=== PATIENT | female | born 1960 | race Two or more races ===

== ENCOUNTER → 2024-04-19 | Outpatient (CLI) | payer SELFPAY ==
--- OUTSIDE RECORDS SUMMARY | 2024-04-19 08:25 | XMS RPT_ITS | CCD ---
Author Organization [facility] In[facility]unc health Partnership [facility] Care Team Providers Care Performance Improvement Manager Name Role Phone ERIKA LUEVANO DO Primary Care Physician ([phone]) PHYSICIAN, PATIENT UNSURE Primary Care Physician Unavailable PHYSICIAN, PATIENT UNSURE Primary Care Mauricio FRIEND MD, CLEMENTINE Mauricio Attending Unavailable PHYSICIAN, PATIENT UNSURE Primary Care CLEMENTINE Cuadra MD Attending Unavailable Medications Current Medications Medication Drug Class(es) Dates Sig (Normalized) Sig (Original) amoxicillin 875 mg / clavulanate 125 mg oral tablet (1 source) Penicillin-class Antibacterial Start: 10-12-2022 End: 10-22-2022 take 1 tablet by mouth every twelve hours amoxicillin-clavul anate 875 mg-125 mg oral tablet 1 tab(s), Oral, q12h, X 10 day(s), # 20 tab(s), 0 Refill(s), 10/22/22 22:40:00 EDT, 76.4 Start Date: 10/12/22 Stop Date: 10/22/22 Status: Ordered aspirin 81 mg delayed release oral tablet (1 source) Platelet Aggregation Inhibitor, Nonsteroidal Anti-inflammatory Drug Start: 04-19-2020 aspirin 81 mg oral delayed release tablet Dose : 81 mg = 1 tab(s), Oral, qDay, # 90 tab(s), 3 Refill(s), Pharmacy: [facility]/pharmacy #[id number], 152.4, cm, 10/24/19 15:11:00 EDT, Height, kg, 10/24/19 15:11:00 EDT, Dosing Weight Start Date: 04/19/20 Status: Ordered Blood Glucose Test Machine (4 sources) Start: 09-18-2020 Blood Glucose Test Machine See Instructions, Dispense 1 glucometer, UAD daily to test blood sugar, # 1 EA, 0 Refill(s), Pharmacy: [facility]/pharmacy #[id number], Diabetes, 152, cm, 09/18/20 16:28:00 EDT, Height, 70.8, kg, 09/18/20 16:28:00 EDT, Dosing Weight Start Date: 09/18/20 Status: Ordered escitalopram 10 mg oral tablet (1 source) Serotonin Reuptake Inhibitor Start: 03-02-2022 escitalopram 10 mg oral tablet Dose : 10 mg = 1 tab(s), Oral, qDay, # 90 tab(s), 3 Refill(s), Pharmacy: [facility] #[id number], Depression with anxiety, 150.5, cm, 01/20/22 15:34:00 EDT, Height, kg, 01/20/22 15:34:00 EDT, Dosing Weight Start Date: 03/02/22 Status: Ordered ezetimibe 10 mg oral tablet (3 sources) Dietary Cholesterol Absorption Inhibitor Start: 01-20-2022 ezetimibe 10 mg oral tablet Dose : 10 mg = 1 tab(s), Oral, Daily, # 90 tab(s), 3 Refill(s), Pharmacy: [facility]/pharmacy #[id number], Mixed hyperlipidemia, 150.5, cm, 01/20/22 15:34:00 EDT, Height Start Date: 01/20/22 Status: Ordered fluticasone / salmeterol (1 source) Corticosteroid, beta2-Adrenergic Agonist Start: 09-24-2022 take 1 dose by mouth twice daily fluticasone-salmet michelle 250 mcg-50 mcg inhalation powder Dose = 1 puff(s), Inhalation, BID, rinse mouth and throat after use, # 1 EA, 0 Refill(s), Pharmacy: [facility] #[id number], Acute bronchitis, 152.5, cm, 09/24/22 11:02:00 EDT, Height Start Date: 09/24/22 Status: Ordered inulin 1500 mg chewable tablet (4 sources) Start: 05-13-2019 Fiber Choice 1.5 g oral tablet, chewable Dose : 1.5 gram(s) = 1 tab(s), Chewed, Daily, # 90 tab(s), 0 Refill(s) Start Date: 05/13/19 Status: Ordered losartan potassium 25 mg oral tablet (4 sources) Angiotensin 2 Receptor Sergio Start: 01-02-2023 losartan 25 mg oral tablet Dose : 25 mg = 1 tab(s), Oral, qDay, # 90 tab(s), 1 Refill(s), Pharmacy: [facility] #[id number], Hypertension Diabetes, 151.13, cm, 10/30/22 15:36:00 EDT, Height, kg, 10/30/22 15:36:00 EDT, Dosing Weight Start Date: 01/02/23 Status: Ordered Start: 12-11-2021 losartan 25 mg oral tablet Dose : 25 mg = 1 tab(s), Oral, qDay, # 90 tab(s), 3 Refill(s), Pharmacy: [facility]/pharmacy #[id number], Hypertension Diabetes, 154, cm, 07/02/21 14:30:00 EST, Height, kg, 07/02/21 14:30:00 EST, Dosing Weight Start Date: 12/11/21 Status: Ordered metoprolol tartrate 100 mg oral tablet (4 sources) beta-Adrenergic Sergio Start: 01-02-2023 metopr olol tartrate 100 mg oral tablet Dose : 100 mg = 1 tab(s), Oral, BID, # 180 tab(s), 1 Refill(s), Pharmacy: [facility] #[id number], 151.13, cm, 10/30/22 15:36:00 EDT, Height, kg, 10/30/22 15:36:00 EDT, Dosing Weight Start Date: 01/02/23 Status: Ordered Start: 12-11-2021 metoprolol tar trate 100 mg oral tablet Dose : 100 mg = 1 tab(s), Oral, BID, # 180 tab(s), 3 Refill(s), Pharmacy: [facility]/pharmacy #[id number], 154, cm, 07/02/21 14:30:00 EST, Height, kg, 07/02/21 14:30:00 EST, Dosing Weight Start Date: 12/11/21 Status: Ordered nitroglycerin 0.4 mg sublingual tablet (4 sources) Nitrate Vasodilator Start: 05-13-2019 nitroglyce rin 0.4 mg sublingual tablet 0.4 mg Dose = 1 tab(s), Sublingual, q5min, PRN as needed for chest pain, # 100 tab(s), 0 Refill(s) Start Date: 05/13/19 Status: Ordered ondansetron 4 mg disintegrating oral tablet (1 source) Serotonin-3 Receptor Antagonist Start: 10-12-2022 End: 10-15-2022 ondansetron 4 mg oral tablet, disintegrating Dose : 4 mg = 1 tab(s), Oral, TID, X 3 day(s), # 10 tab(s), 0 Refill(s), 10/15/22 22:40:00 EDT Start Date: 10/12/22 Stop Date: 10/15/22 Status: Ordered rosuvastatin calcium 20 mg oral tablet (4 sources) HMG-CoA Reductase Inhibitor Start: 01-02-2023 rosuvastatin 20 mg oral tablet Dose : 20 mg = 1 tab(s), Oral, qDay, # 90 tab(s), 1 Refill(s), Pharmacy: [facility] #[id number], 151.13, cm, 10/30/22 15:36:00 EDT, Height, kg, 10/30/22 15:36:00 EDT, Dosing Weight Start Date: 01/02/23 Status: Ordered Start: 07-22-2022 rosuvastatin 2 0 mg oral tablet Dose : 20 mg = 1 tab(s), Oral, qDay, # 90 tab(s), 1 Refill(s), Pharmacy: [facility] #[id number], 153, cm, 07/22/22 16:49:00 EST, Height, kg, 07/22/22 16:49:00 EST, Dosing Weight Start Date: 07/22/22 Status: Ordered Start: 07-02-2021 rosuvastatin 2 0 mg oral tablet Dose : 20 mg = 1 tab(s), Oral, qDay, # 90 tab(s), 3 Refill(s), Pharmacy: [facility]/pharmacy #[id number], 154, cm, 07/02/21 14:30:00 EST, Height, kg, 07/02/21 14:30:00 EST, Dosing Weight Start Date: 07/02/21 Status: Ordered Completed/Discontinued Medications Medication Drug Class(es) Dates Sig (Normalized) Sig (Original) metFORMIN hydrochloride 500 mg oral tablet (4 sources) Biguanide Start: 01-02-2023 End: 07-01-2023 metFORMIN 500 mg oral tablet (IR) Dose : 500 mg = 1 tab(s), Oral, BID, # 180 tab(s), 1 Refill(s), Pharmacy: [facility] #[id number], 151.13, cm, 10/30/22 15:36:00 EDT, Height, kg, 10/30/22 15:36:00 EDT, Dosing Weight Start Date: 01/02/23 Stop Date: 07/01/23 Status: Ordered Start: 12-12-2021 End: 12-07-2022 metFORMIN 500 mg oral tablet (IR) Dose : 500 mg = 1 tab(s), Oral, BID, # 180 tab(s), 3 Refill(s), [id number], 154, cm, 07/02/21 14:30:00 EST, Height, kg, 07/02/21 14:30:00 EST, Dosing Weight Start Date: 12/12/21 Stop Date: 12/07/22 Status: Ordered Problems Problem Classification Problem Date Documented Da te Episodic/Chronic Anxiety disorders (3 sources) Mixed anxiety and depressive disorder 01-20-2022 Chronic Disorders of lipid metabolism (4 sources) Mixed hyperlipidemia 10-24-2019 Chronic Diverticulosis and diverticulitis (1 source) Diverticula of intestine; Translations: [Diverticulitis of intestine, part unspecified, without perforation or abscess without bleeding] Onset: 10-12-2022 Chronic Esophageal disorders (3 sources) Presbyesophagus 07-22-2022 Episodic Other upper respiratory infections (3 sources) Sinusitis 07-22-2022 Chronic Phlebitis; thrombophlebitis and thromboembolism (4 sources) H/O: Deep vein thrombosis 07-02-2021 Episodic Comment on above: Occurred after surge ry in 2003. Residual codes; unclassified (4 sources) Decreased vibratory sense 09-18-2020 Episodic Residual codes; unclassified (4 sources) Family history of cancer of colon 10-24-2019 Episodic Unclassified (4 sources) Patient encounter status 04-25-2019 Results Test Name Value Interpretation Reference Range Facility XR ANKLE MINIMUM 3 VIEWS RIG HTon 02-15-2024 XR ANKLE MINIMUM 3 VIEWS RIGHT ORIGINAL EXAMINATION: THREE XRAY VIEWS OF THE RIGHT ANKLE8/ 10:54 pm COMPARISON: None HISTORY: ORDERING SYSTEM PROVIDED HISTORY: Reason for Exam: pain FINDINGS: No acute fracture, dislocation, or suspicious osseous lesion. No ankle joint effusion. There are moderate degenerative changes of the dorsal midfoot. Small calcaneal spur. IMPRESSION: No acute osseous abnormality. I have personally reviewed the images of this examination and agree with the resident's findings and interpretation. Interpreted by: Dayron Man Preliminary Report By: Aristeo Lane Electronically signed By Dayron Man Dictated Date: 02/15/2024 11:06:04 PM Prelim Date: 02/15/2024 11:07:09 PM Sign Date: 02/15/2024 11:29:33 PM Ordering Provider: CLEMENTINE De Guzman [facility] LABORATORYOrdered By: SYSTEM SYSTEM on 10-31-2022 Creatinine [Mass/Vol] 0.78 mg/dL Invalid Interpretation Code 0.55 - 1.02 mg/dL AO ADM SS GFR/1.73 sq M.predicted among blacks MDRD (S/P/Bld) [Vol rate/Area] 90 ml/min/1.73sqm Invalid Interpretation Code AO Chemistry S GFR/1.73 sq M.predicted among non-blacks MDRD (S/P/Bld) [Vol rate/Area] 74 ml/min/1.73sqm Invalid Interpretation Code AO Chemistry S LABORATORYOrdered By: Deyanira Mcfadden on 10-12-2022 Appearance (U) Slightly Cloudy *ABN* (10/12/22 9:39 PM) Invalid Interpretation Code Clear AO Auto Urine SS Bacteria LM.HPF (Urine sed) [#/Area] 1 /[HPF] Invalid Interpretation Code AO Auto Urine SS Bilirubin Ql (U) Negative (10/12/22 9:39 PM) Invalid Interpretation Code Negative AO Auto Urine SS Color (U) Yellow (10/12/22 9:39 PM) Invalid Interpretation Code AO Auto Urine SS Glucose Test strip (U) [Mass/Vol] Negative Invalid Interpretation Code Negativemg/dL AO Auto Urine SS Hemoglobin Auto test strip (U) [Mass/Vol] Negative (10/12/22 9:39 PM) Invalid Interpretation Code Negative AO Auto Urine SS Ketones Ql (U) Negative Invalid Interpretation Code Negativemg/dL AO Auto Urine SS UA Leuk Est Negative (10/12/22 9:39 PM) Invalid Interpretation Code Negative AO Auto Urine SS UA Nitrite Negative (10/12/22 9:39 PM) Invalid Interpretation Code Negative AO Auto Urine SS UA pH 5.5 (10/12/22 9:39 PM) Invalid Interpretation Code 5.0 - 8.0 AO Auto Urine SS UA Protein Negative Invalid Interpretation Code Negativemg/dL AO Auto Urine SS UA RBC None Seen /HPF Invalid Interpretation Code None Seen/HPF AO Auto Urine SS UA Spec Grav 1.010 *ABN* (10/12/22 9:39 PM) Invalid Interpretation Code 1.015-1.025 AO Auto Urine SS UA Specimen Type Clean Catch (10/12/22 9:39 PM) Invalid Interpretation Code AO Auto Urine SS UA Squam Epithelial 10-15 /HPF Invalid Interpretation Code None Seen/HPF AO Auto Urine SS UA Urobilinogen 0.2 E.U./dL Invalid Interpretation Code 0.2-1.0E.U./d L AO Auto Urine SS WBC LM.HPF (Urine sed) [#/Area] 0-5 /HPF Invalid Interpretation Code None Seen/HPF AO Auto Urine SS LABORATORYOrdered By: Deyanira Mcfadden on 01-17-2022 Albumin BCP dye [Mass/Vol] 4.2 G/dL Invalid Interpretation Code 3.4 - 4.8 G/dL AO ADM SS Albumin DL <= 20 mg/L (U) [Mass/Vol] 2722 mcg/dL Invalid Interpretation Code AO ADM SS Albumin/Creatinine DL <= 20 mg/L (U) [Mass ratio] 12 mcg/mg Invalid Interpretation Code 0 - 30 mcg/mg AO ADM SS Albumin/Globulin [Mass ratio] 1.4 {ratio} Invalid Interpretation Code 1.1 - 2.5 ratio AO ADM SS ALP [Catalytic activity/Vol] 87 U/L Invalid Interpretation Code 40 - 135 U/L AO ADM SS ALT With P-5'-P [Catalytic activity/Vol] 33 U/L Invalid Interpretation Code 14 - 59 U/L AO ADM SS AST With P-5'-P [Catalytic activity/Vol] 21 U/L Invalid Interpretation Code 10 - 40 U/L AO ADM SS Bilirubin [Mass/Vol] 0.4 mg/dL Invalid Interpretation Code 0.2 - 1.0 mg/dL AO ADM SS Calcium [Mass/Vol] 8.9 mg/dL Invalid Interpretation Code 8.4 - 10.2 mg/dL AO ADM SS Chloride [Moles/Vol] 102 mmol/L Invalid Interpretation Code 98 - 107 mmol/L AO ADM SS Cholesterol [Mass/Vol] 242 mg/dL Invalid Interpretation Code 0 - 200 mg/dL AO ADM SS Cholesterol in HDL [Mass/Vol] 47 mg/dL Invalid Interpretation Code 40 - 60 mg/dL AO ADM SS Cholesterol in LDL [Mass/Vol] 150 mg/dL Invalid Interpretation Code 0 - 130 mg/dL AO ADM SS CO2 [Moles/Vol] 30 mmol/L Invalid Interpretation Code 23 - 31 mmol/L AO ADM SS Creatinine (U) [Mass/Vol] 235.2 mg/dL Invalid Interpretation Code 28.0 - 117.0 mg/dL AO ADM SS Creatinine [Mass/Vol] 0.69 mg/dL Invalid Interpretation Code 0.55 - 1.02 mg/dL AO ADM SS Electrolyte Balance 8.0 mEq/L Invalid Interpretation Code 4.0 - 15.0 mEq/L AO ADM SS Globulin 2.9 G/dL Invalid Interpretation Code AO ADM SS Glucose [Mass/Vol] 111 mg/dL Invalid Interpretation Code 80 - 115 mg/dL AO ADM SS Potassium [Moles/Vol] 4.2 mmol/L Invalid Interpretation Code 3.5 - 5.1 mmol/L AO ADM SS Protein [Mass/Vol] 7.1 G/dL Invalid Interpretation Code 6.4 - 8.2 G/dL AO ADM SS Sodium [Moles/Vol] 140 mmol/L Invalid Interpretation Code 136 - 145 mmol/L AO ADM SS Triglyceride [Mass/Vol] 226 mg/dL Invalid Interpretation Code 0 - 150 mg/dL AO ADM SS Urea nitrogen [Mass/Vol] 13 mg/dL Invalid Interpretation Code 7 - 18 mg/dL AO ADM SS Urea nitrogen/Creatinine [Mass ratio] 19 ratio Invalid Interpretation Code 7 - 27 ratio AO ADM SS LABORATORYOrdered By: SYSTEM SYSTEM on 01-17-2022 GFR 104 ml/min/1.73sqm Invalid Interpretation Code AO Chemistry S GFR Non- 86 ml/min/1.73sqm Invalid Interpretation Code AO Chemistry S CNOVon 03-09-2019 CNOV Office Visit ([facility]) ---- LALO CARBAJAL ([id number]) 1960 F Date Time Provider Department 03/09/19 8:45 PM GRANT VENEGAS [facility] During your visit today, we recorded the following information about you: Temperature Pulse Respiration Blood pressure 97.2 degrees 76/minute 18/minute 122/80 Weight 67.2 kg Grant Venegas MD 03/09/2019 9:16 PM Signed Patient presents with: Cough: cough, chest and sinus congestion, NAJERA x 6 days HPI: Feeling sick for 7 days. Symptoms are moving from her head to her chest. Positive symptoms: Cough, Wheezing, resolved initial Sore throat, Sinus pressure (better today than yesterday), Nasal Congestion, Rhinorrhea, Headache, Negative symptoms: Fever, Chills, OTC: Cold Medicine A1c ~6.0 No history of asthma or pneumonia. Hx of bronchitis. She has had to take prednisone before. Mother and brother Hx of asthma. PAST MEDICAL HISTORY Diagnosis Date - Diabetes mellitus (HCC) - Hyperlipidemia - Hypertension MEDICATIONS: Current Outpatient Medications: metFORMIN (GLUCOPHAGE) 500 mg tablet TAKE 1 TABLET BY MOUTH TWICE DAILY FOR 90 DAYS metoprolol tartrate, short acting, (LOPRESSOR) 100 mg tablet Take 100 mg by mouth twice daily. No current facility-administer ed medications for this visit. ALLERGIES: ALLERGIES No Known Allergies VITALS: BP 122/80 Pulse 76 Temp 36.2 ?C (97.2 ?F) (Tympanic) Resp 18 Wt 67.2 kg (148 lb 3.2 oz) SpO2 98% PHYSICAL EXAM: GEN: Pleasant, in no acute distress. HEENT: PERRL, EOMI, conjunctiva clear Ears: canals clear. TMs without erythema, bulge, or effusion Sinuses: non-tender frontal sinus, non-tender maxillary sinuses Throat: moist mucous membranes, mild erythema, no exudate Neck: supple, no thyromegaly, no lymphadenopathy HEART: regular rate and rhythm, no murmurs LUNGS: clear to auscultation, no wheezes or crackles, no increased WOB; wheezy cough ASSESSMENT/PLAN: 1. URI with cough and congestion - ICD9: 465.9, ICD10: J06.9 (primary diagnosis) - PREDNISONE 10 MG TABLET taper. Discussed temporary elevation of blood sugar with prednisone. 2. Acute non-recurrent sinusitis, unspecified location - ICD9: 461.9, ICD10: J01.90 Symptoms are improving. Discussed likely viral etiology. - DOXYCYCLINE MONOHYDRATE 100 MG CAPSULE printed to fill if sinus symptoms worsen again. Grant Venegas MD Referring Provider: SELF [200] Allergies As of Date: 03/09/2019 (No Known Allergies) Date Reviewed: 03/09/2019 Reviewed by: Michaela Márquez LPN - Fully Assessed Reason for Visit: Cough [28] Cmt: cough, chest and sinus congestion, NAJERA x 6 days Primary Visit Diagnosis:URI with cough and congestion [J06.9] Other Visit Diagnosis:Acute non-recurrent sinusitis, unspecified location [J01.90] Order(s):predniSONE (DELTASONE) 10 mg tabletTake by mouth 5 pills on day 1, 4 pills on day 2, 3 pills on day 3, 2 pills on day 4, 1 pill on day 5.Disp: 15 tabletRfl: 0 doxycycline monohydrate (MONODOX) 100 mg capsuleTake 1 capsule by mouth twice daily for 7 days.Disp: 14 capsuleRfl: 0 Prescriptions as of 03/09/2019 Sig: METFORMIN 500 MG TABLET TAKE 1 TABLET BY MOUTH TWICE * METOPROLOL TARTRATE 100 MG TA* Take 100 mg by mouth twice da* PREDNISONE 10 MG TABLET Take by mouth 5 pills on day * DOXYCYCLINE MONOHYDRATE 100 M* Take 1 capsule by mouth twice* Problem List As Of Date: 03/09/2019 (None) Prescriptions ordered this encounter Disp Refills Start End PREDNISONE 10 MG TABLET 15 t* 0 03/09/2019 03/14/2019 Sig: Take by mouth 5 pills on day 1, 4 pills on day 2, 3 pills on day 3, 2 pills on day 4, 1 pill on day 5. DOXYCYCLINE MONOHYDRATE 100 MG CAPSU* 14 c* 0 03/09/2019 03/16/2019 Class: Print RX Route: ORAL Sig: Take 1 capsule by mouth twice daily for 7 days. Encounter Status:Closed by GRANT VENEGAS MD on 03/09/19 [facility] 03-09-2019 PROGRESS HNO ID: [id number] Author: Grant Venegas Service: ? Author Type: Physician Type: Progress Notes Filed: 03/09/2019 9:16 PM Note Text: Patient presents with: Cough: cough, chest and sinus congestion, NAJERA x 6 days HPI: Feeling sick for 7 days. Symptoms are moving from her head to her chest. Positive symptoms: Cough, Wheezing, resolved initial Sore throat, Sinus pressure (better today than yesterday), Nasal Congestion, Rhinorrhea, Headache, Negative symptoms: Fever, Chills, OTC: Cold Medicine A1c ~6.0 No history of asthma or pneumonia. Hx of bronchitis. She has had to take prednisone before. Mother and brother Hx of asthma. PAST MEDICAL HISTORY Diagnosis Date - Diabetes mellitus (HCC) - Hyperlipidemia - Hypertension MEDICATIONS: Current Outpatient Medications: metFORMIN (GLUCOPHAGE) 500 mg tablet TAKE 1 TABLET BY MOUTH TWICE DAILY FOR 90 DAYS metoprolol tartrate, short acting, (LOPRESSOR) 100 mg tablet Take 100 mg by mouth twice daily. No current facility-administer ed medications for this visit. ALLERGIES: ALLERGIES No Known Allergies VITALS: BP 122/80 Pulse 76 Temp 36.2 ?C (97.2 ?F) (Tympanic) Resp 18 Wt 67.2 kg (148 lb 3.2 oz) SpO2 98% PHYSICAL EXAM: GEN: Pleasant, in no acute distress. HEENT: PERRL, EOMI, conjunctiva clear Ears: canals clear. TMs without erythema, bulge, or effusion Sinuses: non-tender frontal sinus, non-tender maxillary sinuses Throat: moist mucous membranes, mild erythema, no exudate Neck: supple, no thyromegaly, no lymphadenopathy HEART: regular rate and rhythm, no murmurs LUNGS: clear to auscultation, no wheezes or crackles, no increased WOB; wheezy cough ASSESSMENT/PLAN: 1. URI with cough and congestion - ICD9: 465.9, ICD10: J06.9 (primary diagnosis) - PREDNISONE 10 MG TABLET taper. Discussed temporary elevation of blood sugar with prednisone. 2. Acute non-recurrent sinusitis, unspecified location - ICD9: 461.9, ICD10: J01.90 Symptoms are improving. Discussed likely viral etiology. - DOXYCYCLINE MONOHYDRATE 100 MG CAPSULE printed to fill if sinus symptoms worsen again. Grant Venegas MD [facility] Vital Signs Date Time Vital Sign Value Performing Clinician Faci [facility]aurang 02-15-2024 22:17-0400 Body temperature 97.16 [degF] CLEMENTINE FRIEND MD [facility] 02-15-2024 22:17-0400 Diastolic Blood Pressure Non-Invasive 82 mm[Hg] CLEMENTINE FRIEND MD [facility] 02-15-2024 22:17-0400 Heart rate 65 /min CLEMENTINE FRIEND MD [facility] 02-15-2024 22:17-0400 Respiratory rate 16 /min CLEMENTINE FRIEND MD [facility] 02-15-2024 22:17-0400 Systolic Blood Pressure Non-Invasive 134 mm[Hg] CLEMENTINE FRIEND MD [facility] 10-12-2022 21:23-0400 Body temperature 98.42 [degF] DR JAYE NAILS MD [facility] 10-12-2022 21:23-0400 Diastolic Blood Pressure Non-Invasive [address] JAYE NAILS MD [facility] 10-12-2022 21:23-0400 Heart rate 79 /min DR JAYE NAILS MD [facility] 10-12-2022 21:23-0400 Respiratory rate 18 /min DR JAYE NAILS MD [facility] 10-12-2022 21:23-0400 Systolic Blood Pressure Non-Invasive [address] JAYE NAILS MD [facility] Encounters Encounter Date Encounter Type Care Provider Facility Start: 02-15-2024 End: 02-15-2024 Emergency department patient visit CLEMENTINE FRIEND MD [facility] Start: 10-31-2022 End: 10-31-2022 Patient encounter procedure ULISES MANCERA MD [facility] Start: 10-31-2022 End: 10-31-2022 Preprocedural examination done ULISES MANCERA MD [facility] Start: 10-12-2022 End: 10-12-2022 Emergency department patient visit DR JAYE NAILS MD [facility] Start: 01-17-2022 End: 01-17-2022 Patient encounter procedure ERIKA LUEVANO DO [facility] Procedures Date Procedure Procedure Detail Performing Clinician Start: 06-22-2003 Excision of colon MARIA LUZ LUEVANO Comment on above: temporary colostomy Colonoscopy ERIKA BASSEM Dilation and curettage MARIA LUZ LUEVANO DO Open reduction of fr acture of humerus with internal fixation ERIKA LUEVANO DO Comment on above: Left Umbilical hernia (disorder) ERIKA LUEVNAO Payers Date Payer Category Payer Medicare [id number] 2024 Self-pay 1960 Unknown [id number] 1960 Unknown [id number] Social History Date Type Detail Facility Start: 09-19-2018 Tobacco smoking status Never s moked tobacco (finding) [facility] Sex Assigned At Female [facility] Medical Equipment Procedure Code Equipment Code Equipment Origin al Text Equipment Identifier Dates See Instructions , Dispense glucose test strips, #100, UAD daily to test blood sugar, # 100 EA, 3 Refill(s), [id number], Diabetes, 152, cm, 09/18/20 16:28:00 EDT, Height, 70.8, kg, 09/18/20 16:28:00 EDT, Dosing Weight Start: 09-18-2020 See Instructions , Dispense glucose test strips, #100, UAD daily to test blood sugar, # 100 EA, 3 Refill(s), [id number], Diabetes, 152, cm, 09/18/20 16:28:00 EDT, Height, 70.8, kg, 09/18/20 16:28:00 EDT, Dosing Weight Start: 09-18-2020 See Instructions , Dispense lancets, #100, use 1 lancet daily to check blood sugar. Diagnosis: E11.9, # 100 EA, 3 Refill(s), [id number], Diabetes, 150.5, cm, 01/20/22 15:34:00 EDT, Height, 70.6 Start: 01-20-2022 See Instructions , Dispense glucose test strips, #100, UAD daily to test blood sugar, # 100 EA, 3 Refill(s), [id number], Diabetes, 152, cm, 09/18/20 16:28:00 EDT, Height, 70.8, kg, 09/18/20 16:28:00 EDT, Dosing Weight Start: 09-18-2020 See Instructions , Dispense lancets, #100, use 1 lancet daily to check blood sugar. Diagnosis: E11.9, # 100 EA, 3 Refill(s), [id number], Diabetes, 150.5, cm, 01/20/22 15:34:00 EDT, Height, 70.6 Start: 01-20-2022 See Instructions , Dispense glucose test strips, #100, UAD daily to test blood sugar, # 100 EA, 1 Refill(s), Pharmacy: [facility] #[id number], Diabetes, 151.13, cm, 10/30/22 15:36:00 EDT, Height, 75.2, kg, 10/30/22 15:36:00 EDT, Dosing Weight Start: 01-02-2023 See Instructions , Dispense lancets, #100, use 1 lancet daily to check blood sugar. Diagnosis: E11.9, # 100 EA, 1 Refill(s), Pharmacy: [facility] #[id number], Diabetes, 151.13, cm, 10/30/22 15:36:00 EDT, Height, 75.2, kg, 10/30/22 15:36:00 EDT, Dosing Weight Start: 01-02-2023 Functional Status Date Assessment Result Facility 02-15-2024 Functional Status ID band on, Call device within reach [facility] 10-12-2022 Functional Status Activity Chipkevin brown Independent [facility] 10-12-2022 Functional Status Standard Safet y ID band on, Call device within reach, Bed in low position, Wheels locked, Upper/Half-Length side-rails up, Phone within reach, personal items within reach, Safety level maintained [facility] Mental Status Date Assessment Result Facility 02-15-2024 Mental Status Oriented x 4 [facility] 10-12-2022 Mental Status Orientation Oriented x 4 [facility] 10-12-[address] [facility] Clinical Notes 10-12-2022 to 02-16-2024 Laboratory Note Date & Type Note Facility 02-16-2024 Hospital Discharg e instructions Patient Education 02/15/2024 22:22:20 Ankle Sprain (Adult) Ankle Sprain (Adult) An ankle sprain is a stretching or tearing of the ligaments that hold the ankle joint together. There are no broken bones. An ankle sprain is a common injury for both children and adults. It happens when the ankle turns, twists, or rolls in an awkward way. This can be caused by a sports injury. Or it can happen from doing something as simple as stepping on an uneven surface. Ligaments are made of tough connective tissue. Normally, ligaments stretch a certain amount and then go back to their normal place. A sprain happens when a ligament is forced to stretch more than the normal amount. A severe sprain can actually tear the ligaments. If you have a severe sprain, you may have felt or heard something like a pop when you were injured. Ankle sprains are given a grade depending on whether they are mild, moderate, or severe: Grade 1 sprain. A mild sprain with minor stretching and damage to the ligament. Grade 2 sprain. A moderate sprain where the ligament is partly torn. Grade 3 sprain. The most severe kind of sprain. The ligament is completely torn. Most sprains take about 4 to 6 weeks to heal. A severe sprain can take several months to recover. Your healthcare provider may order X-rays to be sure you don t have a fracture, or broken bone. The injured area will feel sore. Swelling and pain may make it hard to walk. You may need crutches if walking is painful. Or your provider may have you use a cast boot or air splint. This will depend on the grade of ankle sprain that you have. Home care For a Grade 1 sprain, use RICE (rest, ice, compression, and elevation): Rest your ankle. Don t walk on it. Ice should be used right away to help control swelling. Place an ice pack over the injured area for 20 minutes. Do this every 3 to 6 hours for the first 24 to 48 hours. Keep using ice packs to ease pain and swelling as needed. To make an ice pack, put ice cubes in a plastic bag that seals at the top. Wrap the bag in a clean, thin towel or cloth. Never put ice or an ice pack directly on the skin. The ice pack can be put right on the cast, bandage, or splint. As the ice melts, be careful that the cast, bandage, or splint doesn t get wet. If you have a boot, open it to apply an ice pack, unless told otherwise by your provider. Compression devices help to control swelling. They also keep the ankle from moving and support your injured ankle. These devices include dressings, bandages, and wraps. Elevate or raise your ankle above the level of your heart when sitting or lying down. This is very important for the first 48 hours. Follow the RICE guidelines for a Grade 2 sprain. This type of sprain will take longer to heal. Your provider may have you wear a splint, cast, or brace to keep your ankle from moving. If you have a Grade 3 sprain, you are at risk for long-term ankle instability. In rare cases, surgery may be needed. Your provider may have you wear a short leg cast or a walking boot for 2 to 3 weeks. After 48 hours, it may be helpful to apply heat for 20 minutes several times a day. You can do this with a heating pad or warm compress. Or you may want to go back and forth between using ice and heat. Never apply heat directly to the skin. Always wrap the heating pad or warm compress in a clean, thin towel or cloth. You may use neav-fyn-hxvjtjl pain medicine (NSAIDS or nonsteroidal anti-inflammatory drugs) to control pain, unless another pain medicine was prescribed. Talk with your provider before using these medicines if you have chronic liver or kidney disease, or have ever had a stomach ulcer or gastrointestinal bleeding. Follow any rehabilitation exercises your provider gives you. These can help you be more flexible and improve your balance and coordination. This is helpful in preventing long-term ankle problems. Prevention To help prevent ankle sprains, it s important to have good strength, balance, and flexibility. Be sure to: Always warm up before you exercise or do something very active Be careful when walking or running on uneven or cracked surfaces Wear shoes that are in good condition and fit well Listen to your body s signals to slow down when you are in pain or tired Follow-up care Any X-rays you had today don t show any broken bones, breaks, or fractures. Sometimes fractures don t show up on the first X-ray. Bruises and sprains can sometimes hurt as much as a fracture. These injuries can take time to heal completely. If your symptoms don t get better or they get worse, talk with your healthcare provider. You may need a repeat X-ray. Follow up with your healthcare provider, or as advised. Check for any warning signs listed below. When to seek medical advice Call your healthcare provider right away if any of these occur: Fever of 100.4 F (38 C) or higher, or as directed by your healthcare provider Chills The injury doesn t seem to be healing The swelling comes back The cast or splint has a bad smell The plaster cast or splint gets wet or soft The fiberglass cast or splint gets wet and does not dry for 24 hours The pain or swelling increases, or redness appears Your toes become cold, blue, numb, or tingly The skin is discolored (looks blue, purple, or foley), has blisters, or is irritated You re-injure your ankle [id number] [employer] [address] [place] [address]. All rights reserved. This information is not intended as a substitute for professional medical care. Always follow your healthcare professional's instructions. Follow Up Care 02/15/2024 22:13:33 With:PHYSICIAN, PATIENT UNSURE Address:Unknown When:2-4 days [facility] 02-15-2024 Note Discharge Instructions Thank you for allowing [facility] to assist you with your healthcare needs. The following is important discharge information regarding your hospital visit. What to Do Next Instructions from Your Care Team Discharge Home Equipment - Ordered -- Splint, Ankle Stirrup Right, 99 month(s), air splint, 02/15/24 23:11:00 EDT Post Acute Orders No qualifying data available. You Need to Schedule the Following Appointments Follow Up with PHYSICIAN, PATIENT UNSURE When:Within 2-4 days Allergies NKA Medications Please ask your primary doctor or pharmacist before taking any other medication not listed, including over the counter drugs, herbal medications, vitamins and or supplements as they may interact with your home medications. What How Much When Why Instructions Last Dose Unchanged DME (Blood Glucose Test Machine) See instructions Diabetes Dispense 1 glucometer, UAD daily to test blood sugar Unchanged DME (Blood Glucose Test Strips) See instructions Diabetes Dispense glucose test strips, #100, UAD daily to test blood sugar Unchanged DME (Lancets) See instructions Diabetes Dispense lancets, #100, use 1 lancet daily to check blood sugar. Diagnosis: E11.9 Unchanged ezetimibe (ezetimibe 10 mg oral tablet) 1 tab(s) by mouth Every day Mixed hyperlipidemia Unchanged inulin (Fiber Choice 1.5 g oral tablet, chewable) 1 tab(s) Chewed Every day Unchanged losartan (losartan 25 mg oral tablet) 1 tab(s) by mouth Once a day Hypertension Diabetes Unchanged metFORMIN (metFORMIN 500 mg oral tablet (IR)) 1 tab(s) by mouth Two (2) times a day Duration: 90 Days Unchanged metoprolol (metoprolol tartrate 100 mg oral tablet) 1 tab(s) by mouth Two (2) times a day Unchanged nitroGLYcerin (nitroglycerin 0.4 mg sublingual tablet) 1 tab(s) under the tongue Every 5 minutes as needed for as needed for chest pain Unchanged rosuvastatin (rosuvastatin 20 mg oral tablet) 1 tab(s) by mouth Once a day Please take this list to your next doctor s visit. Bring all medications you take, including over the counter medications, herbals and other supplements with you to your doctor s visit. Patients and families are reminded to discard old lists and to update any records with all medication providers or retail pharmacies. Education Materials Ankle Sprain (Adult) An ankle sprain is a stretching or tearing of the ligaments that hold the ankle joint together. There are no broken bones. An ankle sprain is a common injury for both children and adults. It happens when the ankle turns, twists, or rolls in an awkward way. This can be caused by a sports injury. Or it can happen from doing something as simple as stepping on an uneven surface. Ligaments are made of tough connective tissue. Normally, ligaments stretch a certain amount and then go back to their normal place. A sprain happens when a ligament is forced to stretch more than the normal amount. A severe sprain can actually tear the ligaments. If you have a severe sprain, you may have felt or heard something like a pop when you were injured. Ankle sprains are given a grade depending on whether they are mild, moderate, or severe: Grade 1 sprain. A mild sprain with minor stretching and damage to the ligament. Grade 2 sprain. A moderate sprain where the ligament is partly torn. Grade 3 sprain. The most severe kind of sprain. The ligament is completely torn. Most sprains take about 4 to 6 weeks to heal. A severe sprain can take several months to recover. Your healthcare provider may order X-rays to be sure you don t have a fracture, or broken bone. The injured area will feel sore. Swelling and pain may make it hard to walk. You may need crutches if walking is painful. Or your provider may have you use a cast boot or air splint. This will depend on the grade of ankle sprain that you have. Home care For a Grade 1 sprain, use RICE (rest, ice, compression, and elevation): Rest your ankle. Don t walk on it. Ice should be used right away to help control swelling. Place an ice pack over the injured area for 20 minutes. Do this every 3 to 6 hours for the first 24 to 48 hours. Keep using ice packs to ease pain and swelling as needed. To make an ice pack, put ice cubes in a plastic bag that seals at the top. Wrap the bag in a clean, thin towel or cloth. Never put ice or an ice pack directly on the skin. The ice pack can be put right on the cast, bandage, or splint. As the ice melts, be careful that the cast, bandage, or splint doesn t get wet. If you have a boot, open it to apply an ice pack, unless told otherwise by your provider. Compression devices help to control swelling. They also keep the ankle from moving and support your injured ankle. These devices include dressings, bandages, and wraps. Elevate or raise your ankle above the level of your heart when sitting or lying down. This is very important for the first 48 hours. Follow the RICE guidelines for a Grade 2 sprain. This type of sprain will take longer to heal. Your provider may have you wear a splint, cast, or brace to keep your ankle from moving. If you have a Grade 3 sprain, you are at risk for long-term ankle instability. In rare cases, surgery may be needed. Your provider may have you wear a short leg cast or a walking boot for 2 to 3 weeks. After 48 hours, it may be helpful to apply heat for 20 minutes several times a day. You can do this with a heating pad or warm compress. Or you may want to go back and forth between using ice and heat. Never apply heat directly to the skin. Always wrap the heating pad or warm compress in a clean, thin towel or cloth. You may use sgdx-tzt-ekmfhvl pain medicine (NSAIDS or nonsteroidal anti-inflammatory drugs) to control pain, unless another pain medicine was prescribed. Talk with your provider before using these medicines if you have chronic liver or kidney disease, or have ever had a stomach ulcer or gastrointestinal bleeding. Follow any rehabilitation exercises your provider gives you. These can help you be more flexible and improve your balance and coordination. This is helpful in preventing long-term ankle problems. Prevention To help prevent ankle sprains, it s important to have good strength, balance, and flexibility. Be sure to: Always warm up before you exercise or do something very active Be careful when walking or running on uneven or cracked surfaces Wear shoes that are in good condition and fit well Listen to your body s signals to slow down when you are in pain or tired Follow-up care Any X-rays you had today don t show any broken bones, breaks, or fractures. Sometimes fractures don t show up on the first X-ray. Bruises and sprains can sometimes hurt as much as a fracture. These injuries can take time to heal completely. If your symptoms don t get better or they get worse, talk with your healthcare provider. You may need a repeat X-ray. Follow up with your healthcare provider, or as advised. Check for any warning signs listed below. When to seek medical advice Call your healthcare provider right away if any of these occur: Fever of 100.4 F (38 C) or higher, or as directed by your healthcare provider Chills The injury doesn t seem to be healing The swelling comes back The cast or splint has a bad smell The plaster cast or splint gets wet or soft The fiberglass cast or splint gets wet and does not dry for 24 hours The pain or swelling increases, or redness appears Your toes become cold, blue, numb, or tingly The skin is discolored (looks blue, purple, or foley), has blisters, or is irritated You re-injure your ankle [phone] [employer] [address] [place] [address]. All rights reserved. This information is not intended as a substitute for professional medical care. Always follow your healthcare professional's instructions. Additional Information VACCINATE! IT SAVES LIVES! Members of the community who have not yet received the COVID-19 vaccine and would like to receive it can visit one of [facility] vaccine clinics. There are many vaccine clinic locations within the [facility] [place] [facility]. For locations and available times, please visit [email or web address] [email or web address] It is important to note that some COVID mobile vaccine clinics are held outdoors and may be canceled in rainy or stormy conditions. To learn more about pediatric vaccinations (ages 5-11), we invite you to visit the [facility] webpage. https://www.[facility].org/p ages/2211-Fcmte-Yulxbbfpzwx-Freq xucdaq-Alnib-Dfytwtycy.html To learn more about the COVID-19 vaccine, we invite you to visit the CDC website for a list of frequently asked questions. https://www.cdc.gov/coronavirus/ 2019-ncov/vaccines/faq.html [employer] Patient Portal Access Instructions: Stay connected with your healthcare team and access your personal medical information anytime with the [employer] Patient Portal. If you would like a full copy of your medical records please contact the [facility] Medical Records Department Thursday through Thursday between 8a.m. and 4:30p.m. Please follow the directions below to access the portal: 1.Access the email account you provided upon registration to the hospital.2.Look for an invitation email from [facility].3.Open the email and access the invitation link: Accept Invitation to [employer] [employer] [facility]4.Fill in the required funes to create your account. Sign into [email or web address] with your username and password that you created in the above steps to stay up to date. You can then view a summary of results, a summary of your visits, and the ability to download your summaries to your computer or send the information securely to a physician. Remember that your healthcare information is confidential, so carefully consider who you will allow to register on the [employer] Patient Portal for access to your information. You can also access the [facility] Patient Portal on the [employer] yudelka. Simply click on Health Records under Health Data and then click on the [employer] logo. HOW TO SAFELY DISPOSE OF PRESCRIPTION MEDICATIONS Please use one of the following methods to safely dispose of your unused medications. 1.Use a drug disposal kit: the drug disposal pouch allows you to safely discard your old and unused drugs. Ask your nurse to give you one when you are discharged.2.Visit a local take-back location: Many local pharmacies and police departments have programs that collect old and unwanted prescription drugs. Call your local pharmacy or go to http://Vizify.StyleShare/5F4Hc0o to find one close to you.3.Make use of household items: Use cat litter or old coffee grounds to dispose medications if other options are not available. Mix your drugs with these household products, seal them in an airtight container and throw it into the garbage. Call [facility]: [phone] to be sure your drugs can be disposed of in this way. Some medicines may require a different approach.4.Never flush your medications down the toilet. IF YOU HAVE BEEN PRESCRIBED AN OPIOIDS FOR PAIN If you have been prescribed an opioid (such as hydrocodone, oxycodone or morphine), it is critical to understand the possible side effects and risks of opioid pain medications. Even when taken as directed, opioids can have several side effects including: Tolerance, meaning you might need to take more of a medication for the same pain relief. Nausea, vomiting and/or constipation. Sleepiness, dizziness, dry mouth, confusion, depression or itching. Physical dependence, meaning you have withdrawal symptoms when a medication is stopped ? this can develop within a few days. KNOW YOUR RESPONSIBILITIES It is important to know exactly how much and how often to take the opioid pain medications you are prescribed. Never take opioids in higher amounts or more often than prescribed. Do not combine opioids with alcohol or other drugs that cause drowsiness, such as benzodiazepines, also known as benzos, including diazepam and alprazolam, muscle relaxants or sleep aids. Never sell or share prescription opioids. This is illegal. Store opioids in a secure place and out of reach of others (including children, family, friends and visitors). The last page(s) of this document has been signed and retained as a CHART COPY Signatures Patient Education Materials Ankle Sprain (Adult) Medication Leaflets My discharge plan and instructions have been reviewed and explained to me and ISOLOMON MIRIAM E understand my current condition and have read and understand these discharge instructions. I have received a written copy of the plan/instructions. If I have questions, I am aware that I should contact my doctor. Patient/Legal Executive Assistant Signature: Date/Time: Relationship to Patient: Witness Name/Signature: Date/Time: [facility] 02-15-2024 Note ORIGINAL EXAMINATION: THREE XRAY VIEWS OF THE RIGHT ANKLE02/15/2024 10:54 pm COMPARISON: None HISTORY: ORDERING SYSTEM PROVIDED HISTORY: Reason for Exam: pain FINDINGS: No acute fracture, dislocation, or suspicious osseous lesion. No ankle joint effusion. There are moderate degenerative changes of the dorsal midfoot. Small calcaneal spur. IMPRESSION: No acute osseous abnormality. I have personally reviewed the images of this examination and agree with the resident's findings and interpretation. Interpreted by: Dayron Man Preliminary Report By: Aristeo Lane Electronically signed By Dayron Man Dictated Date: 02/15/2024 11:06:04 PM Prelim Date: 02/15/2024 11:07:09 PM Sign Date: 02/15/2024 11:29:33 PM Ordering Provider: CLEMENTINE FRIEND [facility] Patient Education 10/12/2022 22:40:50 Diverticulitis Diverticulitis Some people get pouches along the wall of the colon as they get older. The pouches, called diverticuli, usually cause no symptoms. If the pouches become blocked, you can get an infection. This infection is called diverticulitis. It causes pain in your lower abdomen and fever. If not treated, it can become a serious condition, causing an abscess to form inside the pouch. The abscess may block the intestinal tract even or rupture, spreading infection throughout the abdomen. When treatment is started early, oral antibiotics alone may be enough to cure diverticulitis. This method is tried first. But, if you don't improve or if your condition gets worse while using oral antibiotics, you may need to be admitted to the hospital for IV antibiotics. Severe cases may require surgery. Home care The following guidelines will help you care for yourself at home: During the acute illness, rest and follow your healthcare provider's instructions about diet. Sometimes you will need to follow a clear liquid diet to rest your bowel. Once your symptoms are better, you may be told to follow a low-fiber diet for some time. Include foods like: oFlake cereal, mashed potatoes, pancakes, waffles, pasta, white bread, rice, applesauce, bananas, eggs, fish, poultry, tofu, and cooked soft vegetables Take antibiotics exactly as instructed. Don't miss any doses or stop taking the medication, even if you feel better. Monitor your temperature and tell your healthcare provider if you have rising temperatures. Preventing future attacks Once you have an episode of diverticulitis, you are at risk for having it again. After you have recovered from this episode, you may be able to lower your risk by eating a high-fiber diet (20 gm/day to 35 gm/day of fiber). This cleans out the colon pouches that already exist and may prevent new ones from forming. Foods high in fiber include fresh fruits and edible peelings, raw or lightly cooked vegetables, whole grain cereals and breads, dried beans and peas, and bran. Other steps that can help prevent future attacks include: Take your medicines, such as antibiotics, as your healthcare provider says. Drink 6 to 8 glasses of water every day, unless told otherwise. Use a heating pad or hot water bottle to help abdominal cramping or pain. Begin an exercise program. Ask your healthcare provider how to get started. You can benefit from simple activities such as walking or gardening. Treat diarrhea with a bland diet. Start with liquids only; then slowly add fiber over time. Watch for changes in your bowel movements (constipation to diarrhea). Avoid constipation by eating a high fiber diet and taking a stool softener if needed. Get plenty of rest and sleep. Follow-up care Follow up with your healthcare provider as advised or sooner if you are not getting better in the next 2 days. When to seek medical advice Call your healthcare provider right away if any of these occur: Fever of 100.4 F (38 C) or higher, or as directed by your healthcare provider Repeated vomiting or swelling of the abdomen Weakness, dizziness, light-headedness Pain in your abdomen that gets worse, severe, or spreads to your back Pain that moves to the right lower abdomen Rectal bleeding (stools that are red, black or maroon color) Unexpected vaginal bleeding [id number] [employer] [address] [place] [address], [place] [address]. All rights reserved. This information is not intended as a substitute for professional medical care. Always follow your healthcare professional's instructions. Follow Up Care 10/12/2022 21:13:02 With:ERIKA LUEVANO Address: [address] [place] [phone]- [phone] Business (1) When:2-4 days Comments:Use ondansetron for nausea, take Augmentin as prescribed. He may use Tylenol ibuprofen for pain. Return if worsening pain, vomiting, fever or other concerning symptoms. Follow-up closely with your doctor. [facility] 10-12-2022 Note Discharge Instructions Thank you for allowing [facility] to assist you with your healthcare needs. The following is important discharge information regarding your hospital visit. Diagnosis from Today's Visit Abdominal pain Diverticulitis What to Do Next Instructions from Your Care Team No qualifying data available. Post Acute Orders No qualifying data available. You Need to Schedule the Following Appointments Follow Up with ERIKA LUEVANO When Within 2-4 days Why: Use ondansetron for nausea, take Augmentin as prescribed. He may use Tylenol ibuprofen for pain. Return if worsening pain, vomiting, fever or other concerning symptoms. Follow-up closely with your doctor. Where: [address] [place] [phone]- [phone] Business (1) Allergies NKA Medications Please ask your primary doctor or pharmacist before taking any other medication not listed, including over the counter drugs, herbal medications, vitamins and or supplements as they may interact with your home medications. What How Much When Why Instructions Last Dose New amoxicillin-clavulanate (amoxicillin-clavulanate 875 mg-125 mg oral tablet) 1 tab(s) by mouth Every 12 hours Duration: 10 Days Printed Prescription New ondansetron (ondansetron 4 mg oral tablet, disintegrating) 1 tab(s) by mouth Three (3) times a day Duration: 3 Days Printed Prescription Please take this list to your next doctor s visit. Bring all medications you take, including over the counter medications, herbals and other supplements with you to your doctor s visit. Patients and families are reminded to discard old lists and to update any records with all medication providers or retail pharmacies. Education Materials Diverticulitis Some people get pouches along the wall of the colon as they get older. The pouches, called diverticuli, usually cause no symptoms. If the pouches become blocked, you can get an infection. This infection is called diverticulitis. It causes pain in your lower abdomen and fever. If not treated, it can become a serious condition, causing an abscess to form inside the pouch. The abscess may block the intestinal tract even or rupture, spreading infection throughout the abdomen. When treatment is started early, oral antibiotics alone may be enough to cure diverticulitis. This method is tried first. But, if you don't improve or if your condition gets worse while using oral antibiotics, you may need to be admitted to the hospital for IV antibiotics. Severe cases may require surgery. Home care The following guidelines will help you care for yourself at home: During the acute illness, rest and follow your healthcare provider's instructions about diet. Sometimes you will need to follow a clear liquid diet to rest your bowel. Once your symptoms are better, you may be told to follow a low-fiber diet for some time. Include foods like: oFlake cereal, mashed potatoes, pancakes, waffles, pasta, white bread, rice, applesauce, bananas, eggs, fish, poultry, tofu, and cooked soft vegetables Take antibiotics exactly as instructed. Don't miss any doses or stop taking the medication, even if you feel better. Monitor your temperature and tell your healthcare provider if you have rising temperatures. Preventing future attacks Once you have an episode of diverticulitis, you are at risk for having it again. After you have recovered from this episode, you may be able to lower your risk by eating a high-fiber diet (20 gm/day to 35 gm/day of fiber). This cleans out the colon pouches that already exist and may prevent new ones from forming. Foods high in fiber include fresh fruits and edible peelings, raw or lightly cooked vegetables, whole grain cereals and breads, dried beans and peas, and bran. Other steps that can help prevent future attacks include: Take your medicines, such as antibiotics, as your healthcare provider says. Drink 6 to 8 glasses of water every day, unless told otherwise. Use a heating pad or hot water bottle to help abdominal cramping or pain. Begin an exercise program. Ask your healthcare provider how to get started. You can benefit from simple activities such as walking or gardening. Treat diarrhea with a bland diet. Start with liquids only; then slowly add fiber over time. Watch for changes in your bowel movements (constipation to diarrhea). Avoid constipation by eating a high fiber diet and taking a stool softener if needed. Get plenty of rest and sleep. Follow-up care Follow up with your healthcare provider as advised or sooner if you are not getting better in the next 2 days. When to seek medical advice Call your healthcare provider right away if any of these occur: Fever of 100.4 F (38 C) or higher, or as directed by your healthcare provider Repeated vomiting or swelling of the abdomen Weakness, dizziness, light-headedness Pain in your abdomen that gets worse, severe, or spreads to your back Pain that moves to the right lower abdomen Rectal bleeding (stools that are red, black or maroon color) Unexpected vaginal bleeding 4312-7337 [employer]. [address] [place] [address]. All rights reserved. This information is not intended as a substitute for professional medical care. Always follow your healthcare professional's instructions. Additional Information VACCINATE! IT SAVES LIVES! Members of the community who have not yet received the COVID-19 vaccine and would like to receive it can visit one of [facility] vaccine clinics. There are many vaccine clinic locations within the [facility] [place] [facility]. For locations and available times, please visit [email or web address] [email or web address] It is important to note that some COVID mobile vaccine clinics are held outdoors and may be canceled in rainy or stormy conditions. To learn more about pediatric vaccinations (ages 5-11), we invite you to visit the [facility] webpage. https://www.[email or web address]/p ages/0998-Uoosp-Achgdiompva-Freq zpyvua-Ewdbx-Auzzjyudb.html To learn more about the COVID-19 vaccine, we invite you to visit the CDC website for a list of frequently asked questions. https://www.cdc.gov/coronavirus/ 2019-ncov/vaccines/faq.html [facility] Patient Portal Access Instructions: Stay connected with your healthcare team and access your personal medical information anytime with the [facility] Patient Portal. If you would like a full copy of your medical records please contact the [facility] Medical Records Department Thursday through Thursday between 8a.m. and 4:30p.m. Please follow the directions below to access the portal: 1.Access the email account you provided upon registration to the hospital.2.Look for an invitation email from [facility].3.Open the email and access the invitation link: Accept Invitation to [facility]4.Fill in the required funes to create your account. Sign into [email or web address] with your username and password that you created in the above steps to stay up to date. You can then view a summary of results, a summary of your visits, and the ability to download your summaries to your computer or send the information securely to a physician. Remember that your healthcare information is confidential, so carefully consider who you will allow to register on the [facility] Patient Portal for access to your information. You can also access the [facility] Patient Portal on the [employer] yudelka. Simply click on Health Records under Health Data and then click on the [facility] logo. HOW TO SAFELY DISPOSE OF PRESCRIPTION MEDICATIONS Please use one of the following methods to safely dispose of your unused medications. 1.Use a drug disposal kit: the drug disposal pouch allows you to safely discard your old and unused drugs. Ask your nurse to give you one when you are discharged.2.Visit a local take-back location: Many local pharmacies and police departments have programs that collect old and unwanted prescription drugs. Call your local pharmacy or go to http://Vizify.StyleShare/2E7Jg6v to find one close to you.3.Make use of household items: Use cat litter or old coffee grounds to dispose medications if other options are not available. Mix your drugs with these household products, seal them in an airtight container and throw it into the garbage. Call [facility]: [phone] to be sure your drugs can be disposed of in this way. Some medicines may require a different approach.4.Never flush your medications down the toilet. IF YOU HAVE BEEN PRESCRIBED AN OPIOIDS FOR PAIN If you have been prescribed an opioid (such as hydrocodone, oxycodone or morphine), it is critical to understand the possible side effects and risks of opioid pain medications. Even when taken as directed, opioids can have several side effects including: Tolerance, meaning you might need to take more of a medication for the same pain relief. Nausea, vomiting and/or constipation. Sleepiness, dizziness, dry mouth, confusion, depression or itching. Physical dependence, meaning you have withdrawal symptoms when a medication is stopped ? this can develop within a few days. KNOW YOUR RESPONSIBILITIES It is important to know exactly how much and how often to take the opioid pain medications you are prescribed. Never take opioids in higher amounts or more often than prescribed. Do not combine opioids with alcohol or other drugs that cause drowsiness, such as benzodiazepines, also known as benzos, including diazepam and alprazolam, muscle relaxants or sleep aids. Never sell or share prescription opioids. This is illegal. Store opioids in a secure place and out of reach of others (including children, family, friends and visitors). The last page(s) of this document has been signed and retained as a CHART COPY Signatures Patient Education Materials Diverticulitis Medication Leaflets My discharge plan and instructions have been reviewed and explained to me and ISOLOMON MIRIAM E understand my current condition and have read and understand these discharge instructions. I have received a written copy of the plan/instructions. If I have questions, I am aware that I should contact my doctor. Patient/Legal Executive Assistant Signature: Date/Time: Relationship to Patient: Witness Name/Signature: Date/Time: [facility] Evaluation + Plan note Future Appointments Appointment Date:01/20/2022 03:30:00 PM Scheduled Provider:ERIKA LUEAVNO DO Location:[facility] Appointment Type:PC OV Future Scheduled TestsCOVID SARS PCR Screen ( Only) 01/26/21 [facility] Evaluation + Plan note Future Appointments Appointment Date:10/15/2022 05:00:00 PM Scheduled Provider:ERIKA LUEVANO DO Location:[facility] Appointment Type:PC Acute Appointment Date:01/15/2023 04:00:00 PM Scheduled Provider:ERIKA LUEVANO DO Location:[facility] Appointment Type:PC OV [facility] Evaluation + Plan note Future Appointments Appointment Date:01/15/2023 04:00:00 PM Scheduled Provider:ERIKA LUEVANO DO Location:[facility] Appointment Type:PC OV [facility] Hospital course Narrative No data available for this section [facility] Hospital Discharge instructions No data available for this section [facility] Progress note No data available for this section [facility] Summary Purpose Family History No Family History Records Found No data available for this section No Family History Records FoundNo Family History Records Found Advance Directives No Advanced Directives Records FoundNo Advanced Directives Records FoundNo Advanced Directives Records Found Additional Source Comments INFORMATION SOURCE (unrecogn ized section and content) DATE CREATED AUTHOR 03/10/2019 [facility] DATE CREATED AUTHOR AUTHOR'S ORGANIZ ATION 02/17/2024 [facility] DATE CREATED AUTHOR AUTHOR'S ORGANIZ ATION 04/11/2024 [facility] Care Team (unrecognized sect ion and content) Care Team Personnel Name: ERIKA LUEVANO DO Position: P4 Physician - Primary Care Med Service: Active Provider Member Role: Primary Care Physician Address: Address: [address] [place] [address] [facility] [place], [place] [id number] [place] [address] Care Team Related Persons Name: VICKY CARBAJAL Address: Home [address] [place], [place] [id number] Patient Care team informatio n (unrecognized section and content) Care Team Personnel Name: ERIKA LUEVANO DO Position: P4 Physician - Primary Care Member Role: Primary Care Physician Address: Address: [address] [place] [phone] [place] Name: JAYE NAILS MD Position: ED Physician Member Role: ED Physician Address: Address: [address] [place] [address].[place] [address]- Care Team Related Persons Name: VICKY CARBAJAL Address: Home [address] [place], [place] [id number] Care Team Personnel Name: ERIKA LUEVANO DO Position: Physician - Primary Care Member Role: Primary Care Physician Address: Address: [address] [place] [phone]- Care Team Related Persons Name: VICKY CARBAJAL Address: Home [address] [place], [place] [id number] Care Team Personnel Name: PHYSICIAN, PATIENT UNSURE Member Role: Primary Care Physician Care Team Related Persons Name: VICKY CARBAJAL Address: Home [address] [place], [place] [phone] FOR RECORDS PERTAINING TO PATIENTS WHO ARE OR HAVE BEEN ENROLLED IN A CHEMICAL DEPENDENCY/SUBSTANCEABUSE PROGRAM, SOME INFORMATION MAY BE OMITTED. This clinical summary was aggregated from multiple sources. Caution should be exercised in using it in the provision of clinical care. This summary normalizes information from multiple sources, and as a consequence, information in this document may materially change the coding, format and clinical context of patient data. In addition, data may be omitted in some cases. CLINICAL DECISIONS SHOULD BE BASED ON THE PRIMARY CLINICAL RECORDS. [facility] [employer] [facility]. provides no warranty or guarantee of the accuracy or completeness of information in this document.
[2024-04-19 12:25] LABS: Absolute Lymphocyte Count 1.58 X10^3/uL (0.83-4.51); Absolute Neutrophil Count 3.8 X10^3/uL (2.0-7.7); Basophil# 0.01 X10^3/uL; Basophil% 0.2 % (0-1); Eosinophil# 0.07 X10^3/uL; Eosinophils% 1.1 % (0-5); Hematocrit 41.9 % (37-47); Hemoglobin 13.6 g/dL (12.0-15.0); Lymphocyte # 1.58 X10^3/ul (0.83-4.51); Lymphocyte % 24.5 % (19-41); Mean Corp Hgb Conc 32.5 g/dL (32-36); Mean Corpuscular Hgb 31.4 pg (27.0-32.0); Mean Corpuscular Volume 96.8 fL (81-99); Mean Platelet Vol. 10.1 fl (6.2-12.0); Monocyte% 15.5 % (0-10); NRBC Flagged by Analyzer 0 % (0-5); Neutrophil # 3.77 X10^3/uL (2.7-7.7); Neutrophil % 58.4 % (47-70); Platelet Count 231 K/mm3 (150-450); RBC Distribution Width CV 11.8 % (11.6-14.6); RBC Distribution Width SD 41.1 fl (35.1-43.9); Red Blood Count 4.33 M/mm3 (4.2-5.4); White Blood Count 6.5 K/mm3 (4.4-11.0)
[2024-04-19 13:05] LABS: Microalbumin,Random Urine 17.5 mg/L (NO RANGE EST.); Microalbumin:Creatinine Ratio 7.7 mg/g CRE (<30 mg/g CRE)
[2024-04-19 13:06] LABS: ALB/GLOB Ratio 1.2 RATIO (0.9-2.4); AST(SGOT) 19 U/L (15-37); Alanine Aminotransfer ALT/SGPT 29 U/L (13-56); Albumin, Serum 4.1 g/dL (3.2-5.0); Alkaline Phosphatase 66 U/L (45-117); Anion Gap 5 (5-15); BUN 17 mg/dL (7-18); BUN/Creat Ratio 24.1 RATIO (10-20); Calcium,Total 9.3 mg/dL (8.5-10.1); Chloride 104 mmol/L (98-107); Cholesterol 191 mg/dL (200); Creatinine, Serum 0.71 mg/dL (0.55-1.02); EST Glomerular Filtration Rate 88 mL/min (>60); Est Glom Filt Rate - Afr Amer 107 mL/min (>60); Globulin 3.5 g/dL (2.2-4.2); Glucose 143 mg/dL (74-106); High Density Lipoprotein 58 mg/dL; Potassium 4.1 mmol/L (3.5-5.1); Protein, Total 7.6 g/dL (6.4-8.2); Sodium Level 138 mmol/L (136-145); Triglycerides 113 mg/dL; Very Low Density Lipoprotein 23 mg/dL (5-40)
[2024-04-20 11:09] LABS: Thyroid Stim Hormone (TSH) 0.957 uIU/mL (0.358-3.740)
== END | disposition home or self-care (01) ==
LOC: BIMLAB 08:03
PROVIDERS: PCP Internal Medicine; Referring Provider Internal Medicine; Visit Provider Internal Medicine
DX: I10 Essential (primary) hypertension (principal); E11.9 Type 2 diabetes mellitus without complications; E78.2 Mixed hyperlipidemia
CPT/HCPCS: 36415; 80053; 80061; 82043; 82570; 84443; 85025